=== PATIENT | female | born 1945 | race Caucasian/White ===

== ENCOUNTER → 2019-04-23 | Outpatient (CLI) | payer MEDICARE ==
[~2019-04-23] MED LIST: ASPIR 8181 MG PO; CENTRUM SILVER1 EAC4 PO; D3 DOTS2000 UNIT PO; FISH OIL 1,001000 M2 PO; FLEXERIL PO; LEVOTHYROXINE0.05 MG PO; LUNESTA3 MG PO; METFORMIN HCL500 MG PO; MOBIC7.5 MG PO; SIMVASTATIN40 MG PO; TOPROL XL25 MG PO
== END ==
LOC: SJCVC 13:06
DX: R94.31 Abnormal electrocardiogram [ECG] [EKG] (principal); I10 Essential (primary) hypertension; I45.6 Pre-excitation syndrome

== ENCOUNTER → 2020-04-21 | Outpatient (CLI) | payer OTHER | LOC: SJCVC 13:38 | PROVIDERS: ATTEND Internal Medicine Cardiovascular Disease | DX: R94.31 Abnormal electrocardiogram [ECG] [EKG] (principal); I45.6 Pre-excitation syndrome; Z79.899 Other long term (current) drug therapy; Z79.82 Long term (current) use of aspirin ==